=== PATIENT | female | born 1990 | race Caucasian/White ===

== ENCOUNTER 2017-12-17 18:30 | Observation (INO) | payer OTHER ==
[2017-12-17] MEDS ORDERED: Zofran 4 MG/2 ML VIAL IV ONE (19:24)
[2017-12-17] MEDS ORDERED: TYLENOL 325 MG PO STA (19:24)
[2017-12-17] MEDS ORDERED: TYLENOL 325 MG ONE (19:30)
[2017-12-17] MEDS ORDERED: Zofran 4 MG/2 ML VIAL ONE (19:30)
--- NOTE | 2017-12-17 19:34 | ERPHSYRPT ---
- History of Present Illness Time Seen by Provider: 12/17/17 19:05 Source: patient, family Exam Limitations: no limitations Patient Subjective Stated Complaint: PT MOTHER REPORTS PT EXPERIENCED TWO SEIZURES THIS EVENING, THE LAST ONE OCCURING APPROX 1800. MOTHER REPORTS PT HAS DECREASED COGNITIVE ABILITY. PT IS AOX3, ABLE TO ANSWER QUESTIONS. PT COMPLAINS OF CHEST PAIN, ABDOMINAL PAIN THAT IS STABBING. MOTHER REPORTS PT HAS WEAKNESS X4 DAYS. Triage Nursing Assessment: PT IS AOX3, ABLE TO ANSWER QUESTIONS, PT ABLE TO FOLLOW SIMPLE COMMANDS, PUPILS PERRL, RESP EASY AND NON LABORED, RADIAL PULSES STRONG AND EQUAL, ABD IS SOFT AND TENDER WITH PALPATION TO THE RIGHT UPPER QUAD AND THE EPIGASTRIC REGION. BOWEL SOUNDS ARE PRESENT AND NORMOACTIVEX4. Physician History: 27 y/o female with cognitive impairment brought in by ambulance for seizure activity X 2 that occurred just prior to arrival. According to the mother, patient had 2 witnessed tonic clonic seizures with post ictal states with the longest lasting 4 mins. In the ER, patient is awake and alert with no distress. Pt is having twitching movements of the upper extremities. Over the past 5 days , patient has been having numbness of bilateral lower extremities and having trouble staying on her feet. Today, patient also complains of chest and abdominal pain. Pt describes the pain as stabbing, constant, 10/10, and pt has not taken any pain meds. Timing/Duration: today Severity: severe Modifying Factors: Improves With: nothing Associated Symptoms: nausea, abdominal pain, chest pain, No shortness of breath Allergies/Adverse Reactions: No Known Drug Allergies Allergy (Verified 12/17/17 18:44) Home Medications: Lamotrigine 100 mg [lamICTAL 100MG TABLET] 200 mg PO BID 12/19/13 [History ] Loratadine 10 mg [Claritin 10 mg] 10 mg PO QAM 12/19/13 [History] Multivitamin [Daily Multivitamin] 1 each PO DAILY 12/19/13 [History] Omeprazole 20 MG [Prilosec 20 mg] 20 mg PO DAILY 12/19/13 [History] Ranitidine HCl [Zantac 75] 150 mg PO BID 12/19/13 [History] Clonidine HCl 0.1 mg [Catapres 0.1 MG] 0.3 mg PO HS 06/13/16 [History] Melatonin/Pyridoxine HCl (B6) [Melatonin 5 mg Tablet] 1 tab PO DAILY 06/13/16 [ History] Hx Tetanus, Diphtheria Vaccination/Date Given: Yes Hx Influenza Vaccination/Date Given: Yes Hx Pneumococcal Vaccination/Date Given: No Immunizations Up to Date: Yes - Review of Systems Constitutional: Weakness, No Fever, No Chills Eyes: No Symptoms Ears, Nose, & Throat: No Symptoms Respiratory: No Cough, No Dyspnea Cardiac: Chest Pain, No Edema, No Syncope Abdominal/Gastrointestinal: Abdominal Pain, Nausea, No Vomiting, No Diarrhea Genitourinary Symptoms: No Dysuria Musculoskeletal: No Back Pain, No Neck Pain Skin: No Rash Neurological: Dizziness, Focal Weakness, Gait Changes, Seizure, No Sensory Changes Psychological: No Symptoms Endocrine: No Symptoms All Other Systems: Reviewed and Negative - Past Medical History Pertinent Past Medical History: Yes Neurological History: Other ENT History: No Pertinent History Cardiac History: Hypertension Respiratory History: No Pertinent History Endocrine Medical History: Other Musculoskeletal History: No Pertinent History GI Medical History: GERD History: Other Psycho-Social History: Anxiety, Attention Deficit Disorder, Bipolar, Depression Female Reproductive Disorders: No Pertinent History Other Medical History: developmentally delayed. anger issues,Mother states "bipolar and pre diabetic" - Past Surgical History Past Surgical History: Yes Neuro Surgical History: No Pertinent History Cardiac: No Pertinent History Respiratory: No Pertinent History Gastrointestinal: Cholecystectomy Genitourinary: No Pertinent History Musculoskeletal: No Pertinent History Female Surgical History: No Pertinent History - Social History Smoking Status: Never smoker Exposure to second hand smoke: No Drug Use: none Patient Lives Alone: No - Female History Hx Last Menstrual Period: 11/17/18 Hx Now: No - Nursing Vital Signs Nursing Vital Signs: Initial Vital Signs Temperature 98.6 F 12/17/17 18:31 Pulse Rate 90 12/17/17 18:31 Respiratory Rate 20 12/17/17 18:31 Blood Pressure 139/50 12/17/17 18:31 O2 Sat by Pulse Oximetry 100 12/17/17 18:31 Pain Scale Pain Intensity 4 - Physical Exam General Appearance: no apparent distress, alert Eye Exam: PERRL/EOMI, eyes nml inspection Ears, Nose, Throat Exam: normal ENT inspection, TMs normal, pharynx normal, moist mucous membranes Neck Exam: normal inspection, non-tender, supple, full range of motion Respiratory Exam: normal breath sounds, lungs clear, No chest tenderness, No respiratory distress Cardiovascular Exam: regular rate/rhythm, normal heart sounds, normal peripheral pulses Gastrointestinal/Abdomen Exam: soft, normal bowel sounds, No tenderness, No mass Back Exam: normal inspection, normal range of motion, No CVA tenderness, No vertebral tenderness Extremity Exam: normal inspection, normal range of motion, pelvis stable Neurologic Exam: alert, oriented x 3, cooperative, airplane tester II-XII nml as tested, normal mood/affect, nml cerebellar function, nml station & gait, sensation nml, No motor deficits, No sensory deficit Skin Exam: normal color, warm, dry, No rash Lymphatic Exam: No adenopathy SpO2: 100 Oxygen Delivery: Room Air - Course Nursing assessment & vital signs reviewed: Yes EKG Interpreted by Me: RATE, NORMAL AXIS, NORMAL INTERVALS, NORMAL QRS Ordered Tests: Active Orders 24 hr Category Date Time Status EKG-ER Only STAT Care 12/17/17 19:21 Active IV Insertion STAT Care 12/17/17 19:21 Active NPO (ED) STAT Care 12/17/17 19:21 Active ABDOMEN AND PELVIS W/0 CONTRAS [CT] Stat Exams 12/17/17 19:22 Taken CHEST WITHOUT CONTRAST [CT] Stat Exams 12/17/17 19:22 Taken HEAD WITHOUT CONTRAST [CT] Stat Exams 12/17/17 19:21 Taken BLOOD CULTURE Stat Lab 12/17/17 19:35 Received CBC W DIFF Stat Lab 12/17/17 19:25 Completed CMP Stat Lab 12/17/17 19:25 Completed HCG QUALITATIVE,SERUM Stat Lab 12/17/17 19:25 Completed SED RATE [Erythrocyte Sedimentation Rate] Stat Lab 12/17/17 19:25 Completed TROPONIN Q3H Lab 12/17/17 19:25 Completed TROPONIN Q3H Lab 12/17/17 22:30 Ordered UA W/RFX UR CULTURE Stat Lab 12/17/17 21:00 Completed Urine Triage Profile Stat Lab 12/17/17 21:00 Completed Medication Summary Discontinued Medications Generic Name Dose Route Start Last Admin Trade Name Freq PRN Reason Stop Dose Admin Acetaminophen 650 mg 12/17/17 19:24 12/17/17 19:32 Tylenol 325 Mg PO 12/17/17 19:25 650 mg STAT STA Administration Acetaminophen Confirm 12/17/17 19:30 Tylenol 325 Mg Administered 12/17/17 19:31 Dose 650 mg .ROUTE .STK-MED ONE Ondansetron HCl 4 mg 12/17/17 19:24 12/17/17 19:32 Zofran 4 Mg/2 Ml Vial IV 12/17/17 19:25 4 mg STAT ONE Administration Ondansetron HCl Confirm 12/17/17 19:30 Zofran 4 Mg/2 Ml Vial Administered 12/17/17 19:31 Dose 4 mg .ROUTE .STK-MED ONE Lab/Rad Data: Laboratory Result Diagrams 12/17/17 19:25 12/17/17 19:25 Laboratory Results 12/17/17 12/17/17 12/17/17 Range/Units 21:00 21:00 19:25 WBC (4.0-10.5) K/mm3 RBC (4.1-5.4) M/mm3 Hgb (12.0-16.0) gm/dl Hct (35-47) % MCV (78-100) fl MCH (26-32) pg MCHC (32-36) g/dl RDW (11.5-14.0) % Plt Count (150-450) K/mm3 MPV (6-9.5) fl Gran % (36.0-66.0) % Lymphocytes % (24.0-44.0) % Monocytes % (0.0-12.0) % Eosinophils % (0.00-5.0) % Basophils % (0.0-0.4) % Basophils # (0-0.4) ESR (0-20) mm/hr Sodium (136-145) mEq/L Potassium (3.5-5.1) mEq/L Chloride (98-107) mEq/L Carbon Dioxide (21-32) mEq/L Anion Gap (5-15) MEQ/L BUN (9-20) mg/dL Creatinine (0.55-1.30) mg/dl Estimated GFR ML/MIN Glucose (70-110) MG/DL Calcium (8.5-10.1) mg/dL Total Bilirubin (0.2-1.0) mg/dL AST (15-37) U/L ALT (12-78) U/L Alkaline Phosphatase (46-116) U/L Troponin I < 0.017 (0.000-0.056) ng/ml Serum Total Protein (6.4-8.2) gm/dL Albumin (3.4-5.0) g/dL Serum , Qual (Negative) Ur Collection Type CCMS Urine Color YELLOW (YELLOW) Urine Appearance CLEAR (CLEAR) Urine pH 5.0 (5-6) Ur Specific [place] 1.010 (1.005-1.025) Urine Protein NEGATIVE (Negative) Urine Ketones MODERATE (NEGATIVE) Urine Blood NEGATIVE (0-5) Wayne/ul Urine Nitrite NEGATIVE (NEGATIVE) Urine Bilirubin NEGATIVE (NEGATIVE) Urine Urobilinogen NORMAL (0-1) mg/dL Ur Leukocyte Esterase NEGATIVE (NEGATIVE) Urine Culture Reflexed NO (NO) Urine Glucose NEGATIVE (NEGATIVE) mg/dL Urine Opiates Level NEG. (NEGATIVE) Ur Methadone NEG. (NEGATIVE) Urine Barbiturates NEG. (NEGATIVE) Ur Phencyclidine (PCP) NEG. (NEGATIVE) Urine Amphetamine NEG. (NEGATIVE) U Benzodiazepine Level NEG. (NEGATIVE) Urine Cocaine NEG. (NEGATIVE) Urine Marijuana (THC) NEG. (NEGATIVE) Specimen Received [id number]/[id number]/17 12/17/17 12/17/17 Range/Units 19:25 19:25 19:25 WBC (4.0-10.5) K/mm3 RBC (4.1-5.4) M/mm3 Hgb (12.0-16.0) gm/dl Hct (35-47) % MCV (78-100) fl MCH (26-32) pg MCHC (32-36) g/dl RDW (11.5-14.0) % Plt Count (150-450) K/mm3 MPV (6-9.5) fl Gran % (36.0-66.0) % Lymphocytes % (24.0-44.0) % Monocytes % (0.0-12.0) % Eosinophils % (0.00-5.0) % Basophils % (0.0-0.4) % Basophils # (0-0.4) ESR 16 (0-20) mm/hr Sodium 139 (136-145) mEq/L Potassium 4.1 (3.5-5.1) mEq/L Chloride 102 (98-107) mEq/L Carbon Dioxide 28.2 (21-32) mEq/L Anion Gap 12.8 (5-15) MEQ/L BUN 13 (9-20) mg/dL Creatinine 0.84 (0.55-1.30) mg/dl Estimated GFR > 60 ML/MIN Glucose 92 (70-110) MG/DL Calcium 9.3 (8.5-10.1) mg/dL Total Bilirubin 0.40 (0.2-1.0) mg/dL AST 22 (15-37) U/L ALT 23 (12-78) U/L Alkaline Phosphatase 88 (46-116) U/L Troponin I (0.000-0.056) ng/ml Serum Total Protein 8.2 (6.4-8.2) gm/dL Albumin 4.4 (3.4-5.0) g/dL Serum , Qual NEGATIVE (Negative) Ur Collection Type Urine Color (YELLOW) Urine Appearance (CLEAR) Urine pH (5-6) Ur Specific [place] (1.005-1.025) Urine Protein (Negative) Urine Ketones (NEGATIVE) Urine Blood (0-5) Wayne/ul Urine Nitrite (NEGATIVE) Urine Bilirubin (NEGATIVE) Urine Urobilinogen (0-1) mg/dL Ur Leukocyte Esterase (NEGATIVE) Urine Culture Reflexed (NO) Urine Glucose (NEGATIVE) mg/dL Urine Opiates Level (NEGATIVE) Ur Methadone (NEGATIVE) Urine Barbiturates (NEGATIVE) Ur Phencyclidine (PCP) (NEGATIVE) Urine Amphetamine (NEGATIVE) U Benzodiazepine Level (NEGATIVE) Urine Cocaine (NEGATIVE) Urine Marijuana (THC) (NEGATIVE) Specimen Received 12/17/17 Range/Units 19:25 WBC 7.1 (4.0-10.5) K/mm3 RBC 4.17 (4.1-5.4) M/mm3 Hgb 13.1 (12.0-16.0) gm/dl Hct 40.5 (35-47) % MCV 97.1 (78-100) fl MCH 31.4 (26-32) pg MCHC 32.3 (32-36) g/dl RDW 11.6 (11.5-14.0) % Plt Count 262 (150-450) K/mm3 MPV 8.9 (6-9.5) fl Gran % 63.6 (36.0-66.0) % Lymphocytes % 23.6 L (24.0-44.0) % Monocytes % 10.0 (0.0-12.0) % Eosinophils % 2.5 (0.00-5.0) % Basophils % 0.3 (0.0-0.4) % Basophils # 0.02 (0-0.4) ESR (0-20) mm/hr Sodium (136-145) mEq/L Potassium (3.5-5.1) mEq/L Chloride (98-107) mEq/L Carbon Dioxide (21-32) mEq/L Anion Gap (5-15) MEQ/L BUN (9-20) mg/dL Creatinine (0.55-1.30) mg/dl Estimated GFR ML/MIN Glucose (70-110) MG/DL Calcium (8.5-10.1) mg/dL Total Bilirubin (0.2-1.0) mg/dL AST (15-37) U/L ALT (12-78) U/L Alkaline Phosphatase (46-116) U/L Troponin I (0.000-0.056) ng/ml Serum Total Protein (6.4-8.2) gm/dL Albumin (3.4-5.0) g/dL Serum , Qual (Negative) Ur Collection Type Urine Color (YELLOW) Urine Appearance (CLEAR) Urine pH (5-6) Ur Specific [place] (1.005-1.025) Urine Protein (Negative) Urine Ketones (NEGATIVE) Urine Blood (0-5) Wayne/ul Urine Nitrite (NEGATIVE) Urine Bilirubin (NEGATIVE) Urine Urobilinogen (0-1) mg/dL Ur Leukocyte Esterase (NEGATIVE) Urine Culture Reflexed (NO) Urine Glucose (NEGATIVE) mg/dL Urine Opiates Level (NEGATIVE) Ur Methadone (NEGATIVE) Urine Barbiturates (NEGATIVE) Ur Phencyclidine (PCP) (NEGATIVE) Urine Amphetamine (NEGATIVE) U Benzodiazepine Level (NEGATIVE) Urine Cocaine (NEGATIVE) Urine Marijuana (THC) (NEGATIVE) Specimen Received - Progress Progress: improved Progress Note: 12/17/17 22:[address] scan head, CT chest and abdomen are all within normal limits. The labs and UA as well as urine tox screen are all within normal limits. In the ER, patient has been having twitching movements and becomes tachycardic in the 120' s. No tonic clonic seizures in the ER. The patient has been accepted by neurologist, Dr Tran at [facility] for seizure activity. Since there is a several hour wait, the patient will be admitted as an OBS under the care of Dr Patricio. - Departure Time of Disposition: 22:06 Departure Disposition: Observation Clinical Impression: Seizure Condition: Fair Critical Care Time: Yes Critical Care Time(excluding separately billable procedures): 75-104 minutes Referrals: HUNTER PATRICIO MD [Primary Care Provider] -
[2017-12-17 19:43] LABS: BASOPHIL % 0.3 % (0.0-0.4); Basophil (Absolute #) 0.02 (0-0.4); Eosinophil % 2.5 % (0.00-5.0); Eosinophil (Absolute #) 0.18 (0-0.5); Granulocyte Absolute (ANC) 4.52 (1.4-6.9); Granulocytes % 63.6 % (36.0-66.0); Hematocrit 40.5 % (35-47); Hemoglobin 13.1 gm/dl (12.0-16.0); Lymphocyte (Absolute #) 1.68 (1.0-4.6); Lymphocytes % 23.6 % (24.0-44.0); Mean Cell Volume 97.1 fl (78-100); Mean Corpuscular Hemoglobin 31.4 pg (26-32); Mean Corpuscular Hgb Concent. 32.3 g/dl (32-36); Mean Platelet Volume 8.9 fl (6-9.5); Monocyte (Absolute #) 0.71 (0.0-1.3); Platelet Count 262 K/mm3 (150-450); Red Blood Count 4.17 M/mm3 (4.1-5.4); Red Cell Distribution Width 11.6 % (11.5-14.0); White Blood Count 7.1 K/mm3 (4.0-10.5)
[2017-12-17 20:15] LABS: ALBUMIN 4.4 g/dL (3.4-5.0); ALKALINE PHOSPHATASE 88 U/L (46-116); ANION GAP 12.8 MEQ/L (5-15); BLOOD UREA NITROGEN 13 mg/dL (9-20); CHLORIDE 102 mEq/L (98-107); Calcium 9.3 mg/dL (8.5-10.1); Carbon Dioxide 28.2 mEq/L (21-32); Creatinine 1 0.84 mg/dl (0.55-1.30); EST GLOMERULAR FILTRATION RATE > 60 ML/MIN; Glucose 92 MG/DL (70-110); Potassium 4.1 mEq/L (3.5-5.1); SGOT/AST 22 U/L (15-37); SGPT/ALT 23 U/L (12-78); SODIUM 139 mEq/L (136-145); Total Protein 8.2 gm/dL (6.4-8.2)
[2017-12-17 21:14] LABS: Appearance CLEAR (CLEAR); Bilirubin NEGATIVE (NEGATIVE); Blood NEGATIVE Ery/ul (0-5); Glucose NEGATIVE (NEGATIVE); Ketones MODERATE (NEGATIVE); Leukocyte Esterase NEGATIVE (NEGATIVE); Nitrite NEGATIVE (NEGATIVE); Protein,Urine Dip NEGATIVE (Negative); Urobilinogen NORMAL mg/dL (0-1)
[2017-12-17 21:19] LABS: Amphetamine,Urine NEG. (NEGATIVE); Barbiturate,Urine NEG. (NEGATIVE); Benzodiazepine,Urine NEG. (NEGATIVE); Cocaine,Urine NEG. (NEGATIVE); Methadone,Urine NEG. (NEGATIVE); Opiate,Urine NEG. (NEGATIVE); PCP,Urine NEG. (NEGATIVE); THC,Urine NEG. (NEGATIVE)
[2017-12-17] MEDS ORDERED: lamICTAL 100MG TABLET PO SCH (22:00)
[2017-12-18] MEDS ORDERED: DESYREL 50 MG PO ONE (00:10)
[2017-12-18] MEDS ORDERED: Pepcid 20 MG PO ONE (00:18)
[2017-12-18] MEDS: TYLENOL 325 MG PO PRN ×2 (00:20→21:01)
[2017-12-18] MEDS ORDERED: Ativan 2 MG/1 ML VIAL IV ONE (01:01)
[2017-12-18] MEDS ORDERED: Ativan 2 MG/1 ML VIAL IV PRN (02:11)
[2017-12-18] MEDS: Zofran 4 MG/2 ML VIAL IV PRN ×3 (02:38→21:01)
[2017-12-18 05:31] LABS: BASOPHIL % 0.3 % (0.0-0.4); Basophil (Absolute #) 0.02 (0-0.4); Eosinophil % 3.7 % (0.00-5.0); Eosinophil (Absolute #) 0.22 (0-0.5); Granulocyte Absolute (ANC) 3.05 (1.4-6.9); Granulocytes % 50.9 % (36.0-66.0); Hematocrit 37.1 % (35-47); Hemoglobin 11.9 gm/dl (12.0-16.0); Lymphocytes % 33.3 % (24.0-44.0); Mean Cell Volume 97.1 fl (78-100); Mean Corpuscular Hgb Concent. 32.1 g/dl (32-36); Mean Platelet Volume 8.9 fl (6-9.5); Monocyte (Absolute #) 0.71 (0.0-1.3); Monocytes % 11.8 % (0.0-12.0); Platelet Count 225 K/mm3 (150-450); Red Blood Count 3.82 M/mm3 (4.1-5.4); Red Cell Distribution Width 11.6 % (11.5-14.0)
[2017-12-18 05:34] LABS: Mean Corpuscular Hemoglobin 31.1 pg (26-32)
[2017-12-18 06:09] LABS: ANION GAP 10.3 MEQ/L (5-15); BLOOD UREA NITROGEN 11 mg/dL (9-20); CHLORIDE 103 mEq/L (98-107); Calcium 8.7 mg/dL (8.5-10.1); Carbon Dioxide 29.4 mEq/L (21-32); Creatinine 1 0.85 mg/dl (0.55-1.30); EST GLOMERULAR FILTRATION RATE > 60 ML/MIN; Glucose 95 MG/DL (70-110); Potassium 3.8 mEq/L (3.5-5.1); SODIUM 139 mEq/L (136-145)
--- NOTE | 2017-12-18 08:40 | XRAY ---
Indication: Seizure. Multiple contiguous axial images obtained through the head without contrast. Comparison: None Normal appearing brain parenchyma, ventricles, and bony calvarium. Visualized paranasal sinuses and mastoid air cells clear. Impression: Normal CT head without contrast exam. Comment: Preliminary interpretation was made by [facility]. No discrepancy. CT DI 68.65
--- NOTE | 2017-12-18 08:42 | XRAY ---
Indication: Chest and abdomen pain. Weakness and extremity numbness. Seizure. Multiple contiguous axial images obtained through the chest without contrast as ordered. Comparison: None Lungs are inflated and clear. Heart is not enlarged. Aorta is normal in course and caliber. No pathologic mediastinal lymphadenopathy. Bony thorax intact. CT abdomen report is reported separately. Impression: Normal CT chest without contrast exam. Comment: Preliminary interpretation was made by [facility]. No discrepancy. CT DI 17.76
--- NOTE | 2017-12-18 08:44 | XRAY ---
Indication: Chest and abdomen pain. Weakness and extremity numbness. Seizure. Multiple contiguous images obtained through the abdomen and pelvis without contrast as ordered. Comparison: May 14, 2015. CT chest reported separately. Noncontrasted stomach and bowel loops appear nonobstructed. Normal appendix. Again previous cholecystectomy. No free fluid/air. Remaining liver, pancreas, spleen, adrenal glands, kidneys, ureters, bladder, uterus, and aorta appear unremarkable for noncontrast exam. Osseous structures intact. Impression: Negative CT abdomen/pelvis without contrast exam. Comment: Preliminary interpretation was made by [facility]. No discrepancy. CT DI 22.12
[2017-12-18] MEDS ORDERED: NON-FORMULARY ITEM (Ranitidine Hcl [Zantac 75] 150 MG) PO SCH (10:00)
[2017-12-18] MEDS: Pepcid 20 MG PO SCH ×2 (10:21→23:06)
[2017-12-18] MEDS: CLARITIN 10 MG PO SCH (10:21)
[2017-12-18] MEDS: lamICTAL 100MG TABLET PO SCH ×2 (10:21→23:04)
[2017-12-18] MEDS ORDERED: DESYREL 50 MG PO SCH (22:00)
[2017-12-18] MEDS ORDERED: NON-FORMULARY ITEM (Trazodone Hcl [Trazodone Hcl] 100 MG) PO SCH (22:00)
[2017-12-19] MEDS: TYLENOL 325 MG PO PRN (01:34)
[2017-12-19] MEDS ORDERED: Ativan 1 MG PO PRN (02:05)
[2017-12-19] MEDS ORDERED: Sodium Chloride 0.9% 10 ML FLUSH Syringe IV SCH (06:00)
[2017-12-19] MEDS: lamICTAL 100MG TABLET PO SCH (08:25)
[2017-12-19] MEDS: CLARITIN 10 MG PO SCH (08:25)
[2017-12-19] MEDS: Pepcid 20 MG PO SCH (08:25)
[2017-12-19 08:34] VITALS: O2SAT 97
[2017-12-19] MEDS: Zofran 4 MG/2 ML VIAL IV PRN (11:18)
[2017-12-19 11:38] VITALS: BP 101/53; PULSE 85
--- NOTE | 2017-12-19 14:24 | PCM.SSS ---
History of Present Illness - Chief Complaint Chief Complaint: Seizure History of Present Illness: is a 27 year old female. - Review of Systems Constitutional: No Fever, No Chills Eyes: No Symptoms Ears, Nose, & Throat: No Symptoms Respiratory: No Cough, No Short Of Breath Cardiac: No Chest Pain, No Edema, No Syncope Abdominal/Gastrointestinal: No Abdominal Pain, No Nausea, No Vomiting, No Diarrhea Genitourinary Symptoms: No Dysuria Musculoskeletal: No Back Pain, No Neck Pain Skin: No Rash Neurological: Parasthesia, Seizure, No Dizziness, No Focal Weakness, No Sensory Changes Psychological: No Symptoms Endocrine: No Symptoms Hematologic/Lymphatic: No Symptoms Immunological/Allergic: No Symptoms Medications & Allergies Home Medications: Home Medication List Lamotrigine 100 mg [lamICTAL 100MG TABLET] 200 mg PO BID 12/19/13 [ History Confirmed 12/17/17] Loratadine 10 mg [Claritin 10 mg] 10 mg PO QAM 12/19/13 [History Confirmed 12/17/17] Ranitidine HCl [Zantac 75] 150 mg PO BID 12/19/13 [History Confirmed 12/17/17] Trazodone HCl 100 mg PO HS 12/17/17 [History Confirmed 12/17/17] Allergies/Adverse Reactions: Allergies Allergy/AdvReac Type Severity Reaction Status Date / Time No Known Drug Allergies Allergy Verified 12/17/17 18:44 - Past Medical History Past Medical History: Yes Neurological History: Other ENT History: No Pertinent History Cardiac History: Hypertension Respiratory History: No Pertinent History Endocrine Medical History: Other Musculoskelatal History: No Pertinent History GI Medical History: GERD History: Other Pyscho-Social History: Anxiety, Attention Deficit Disorder, Bipolar, Depression Reproductive Disorders: No Pertinent History Comment: developmentally delayed. anger issues,Mother states "bipolar and pre diabetic" - Female History Hx Last Menstrual Period: 11/17/18 Are you now?: No - Past Surgical History Past Surgical History: Yes Neuro Surgical History: No Pertinent History Cardiac History: No Pertinent History Respiratory Surgery: No Pertinent History GI Surgical History: Cholecystectomy Genitourinary Surgical Hx: No Pertinent History Musculskeletal Surgical Hx: No Pertinent History Female Surgical History: No Pertinent History - Social History Smoking Status: Never smoker Exposure to second hand smoke: No Alcohol: None Drug Use: none - Physical Exam Vital Signs: Vital Signs - 24 hr Temp Pulse Resp BP Pulse Ox 12/19/17 11:37 98.8 F 85 20 101/53 97 12/19/17 08:00 97.5 F 56 L 20 113/53 97 12/19/17 04:05 98.6 F 91 H 16 94/57 98 12/19/17 00:25 98.6 F 75 20 105/51 97 12/18/17 14:59 97.8 F 80 20 107/68 97 General Appearance: no apparent distress, alert Neurologic Exam: alert, oriented x 3, cooperative, normal mood/affect, nml cerebellar function, nml station & gait, sensation nml, No motor deficits Eye Exam: PERRL/EOMI, eyes nml inspection Ears, Nose, Throat Exam: normal ENT inspection, TMs normal, pharynx normal, moist mucous membranes Neck Exam: normal inspection, non-tender, supple, full range of motion Respiratory Exam: normal breath sounds, lungs clear, No respiratory distress Cardiovascular Exam: regular rate/rhythm, normal heart sounds, normal peripheral pulses Gastrointestinal/Abdomen Exam: soft, normal bowel sounds, No tenderness, No mass Back Exam: normal inspection, normal range of motion, No CVA tenderness, No vertebral tenderness Extremity Exam: normal inspection, normal range of motion, pelvis stable Skin Exam: normal color, warm, dry, No rash Lymphatic Exam: No adenopathy Assessment/Plan (1) Seizure Current Visit: Yes Status: Acute Code(s): R56.9 - UNSPECIFIED CONVULSIONS (2) Dizziness Current Visit: No Status: Acute Code(s): R42 - DIZZINESS AND GIDDINESS Hospital Summary - Hospital Course Hospital Course: Chief Complaint Diagnosis Seizure Allergies Allergy/AdvReac Type Severity Reaction Status Date / Time No Known Drug Allergies Allergy Verified 12/17/17 18:44 Vital Signs (Last 24 hours) Temp Pulse Resp BP Pulse Ox 12/19/17 11:37 98.8 F 85 20 101/53 97 12/19/17 08:00 97.5 F 56 L 20 113/53 97 12/19/17 04:05 98.6 F 91 H 16 94/57 98 12/19/17 00:25 98.6 F 75 20 105/51 97 12/18/17 14:59 97.8 F 80 20 107/68 97 Home Medications Medication Instructions Recorded Confirmed Last Taken Type Trazodone HCl 100 mg PO HS 12/17/17 12/17/17 12/16/17 History Current Medications Generic Name Dose Route Start Last Admin Trade Name Siva PRN Reason Stop Dose Admin Acetaminophen 650 mg 12/17/17 23:51 12/19/17 01:34 Tylenol 325 Mg PO 01/16/18 23:50 650 mg Q4H PRN PRN Administration PAIN AND/OR FEVER Famotidine 20 mg 12/18/17 10:00 12/19/17 08:25 Pepcid 20 Mg PO 01/17/18 09:59 20 mg BID HOLDEN Administration Lamotrigine 200 mg 12/18/17 10:00 12/19/17 08:25 Lamictal 100mg Tablet PO 01/17/18 09:59 200 mg BID HOLDEN Administration Loratadine 10 mg 12/18/17 10:00 12/19/17 08:25 Claritin 10 Mg PO 01/17/18 09:59 10 mg QAM HOLDEN Administration Lorazepam 2 mg 12/18/17 02:11 Ativan 2 Mg/1 Ml Vial IV 01/17/18 02:09 ONCE PRN Siezure Lorazepam 1 mg 12/19/17 02:05 Ativan 1 Mg PO 01/18/18 02:04 Q4H PRN PRN ANXIETY Ondansetron HCl 4 mg 12/17/17 22:07 12/19/17 11:18 Zofran 4 Mg/2 Ml Vial IV 01/16/18 22:06 4 mg Q6H PRN PRN Administration NAUSEA/VOMITING Sodium Chloride 10 ml 12/19/17 06:00 12/19/17 08:25 Sodium Chloride 0.9% 10 Ml Flush Syringe IV 01/18/18 05:59 10 ml Q8HT HOLDEN Administration Trazodone HCl 100 mg 12/18/17 22:00 12/18/17 23:03 Desyrel 50 Mg PO 01/17/18 21:59 100 mg HS HOLDEN Administration Discontinued Medications Generic Name Dose Route Start Last Admin Trade Name Siva PRN Reason Stop Dose Admin Acetaminophen 650 mg 12/17/17 19:24 12/17/17 19:32 Tylenol 325 Mg PO 12/17/17 19:25 650 mg STAT STA Administration Acetaminophen Confirm 12/17/17 19:30 Tylenol 325 Mg Administered 12/17/17 19:31 Dose 650 mg .ROUTE .STK-MED ONE Famotidine 20 mg 12/18/17 00:18 12/18/17 00:20 Pepcid 20 Mg PO 12/18/17 00:19 20 mg ONCE ONE Administration Lamotrigine 100 mg 12/17/17 22:00 12/18/17 00:20 Lamictal 100mg Tablet PO 01/16/18 21:59 100 mg BID HOLDEN Administration Lorazepam 2 mg 12/18/17 01:01 Ativan 2 Mg/1 Ml Vial IV 12/18/17 01:02 ONCE ONE Ondansetron HCl 4 mg 12/17/17 19:24 12/17/17 19:32 Zofran 4 Mg/2 Ml Vial IV 12/17/17 19:25 4 mg STAT ONE Administration Ondansetron HCl Confirm 12/17/17 19:30 Zofran 4 Mg/2 Ml Vial Administered 12/17/17 19:31 Dose 4 mg .ROUTE .STK-MED ONE Trazodone HCl 100 mg 12/18/17 00:10 12/18/17 00:20 Desyrel 50 Mg PO 12/18/17 00:11 100 mg ONCE ONE Administration Intake & Output (Last 24 hours) 12/17/17 12/18/17 12/19/17 12/20/17 11:59 11:59 11:59 11:59 Intake Total 600 2800 480 Output Total 300 2025 Balance 300 775 480 Weight 85.4 kg Microbiology Results (Last 24 hours) 12/17/17 19:25 Blood - Pending 12/17/17 19:25 Blood Blood Culture - Preliminary NO GROWTH TO DATE Orders (Last 24 hours) Category Date Time Status Miscellaneous Nursing Order ROUTINE Care 12/18/17 15:55 Active Neuro Checks Q4H Care 12/19/17 04:00 Active cath [Cath for Residual-In & Out] ROUTINE Care 12/19/17 02:07 Active Discharge Routine Discharge 12/19/17 13:54 Ordered Discharge/Telephone Order Routine Discharge 12/19/17 Active Lorazepam 1 mg [Ativan 1 MG] Med 12/19/17 02:05 Active 1 mg PO Q4H PRN PRN NaCl 0.9% 10 ML FLUSH [Sodium Chloride 0.9% 10 ML FLUSH Med 12/19/17 06:00 Active Syringe] 10 ml IV Q8HT Trazodone HCl 50 mg [Desyrel 50 mg] Med 12/18/17 22:00 Active 100 mg PO HS Patient Care Notes (Last 24 hours) 12/19/17 11:30 (created 12/19/17 11:38) Nursing Note by Mila Cruz Pt c/o chest and abd "gregoria. C/o sl nausea; med given for same. Initialized on 12/19/17 11:38 - END OF NOTE 12/19/17 09:30 (created 12/19/17 10:09) Nursing Note by Mila Cruz [facility] transfer center called for pt update and V/S. Initialized on 12/19/17 10:09 - END OF NOTE 12/19/17 02:45 Nursing Note by Jhonny Boogie Pt was able to void 200 ml. Will not straight cath at this time. Initialized on 12/19/17 02:45 - END OF NOTE 12/19/17 02:02 Nursing Note by Jhonny Boogie Reported increased numbness and urinary retention to Dr Patricio. Ordered ativan 1 mg po q4h prn, may do straight cath for urinary retention. Neurochecks every 4 hours. Initialized on 12/19/17 02:02 - END OF NOTE 12/19/17 01:44 Nursing Note by Jhonny Boogie Pt c/o increasing numbness to legs and arms. States she is numb from the neck down and cannot move. When asked to move her toes, she was able to move them. Asked pt to close her eyes hand tell me which leg I was touching, she only responded when I touched the left leg. Pt did not respond to painful stimuli ( nail bed pressure) to left leg or left hand. Pt also c/o difficulty urinating. Called transfer center to check on bed availability, still no beds available. Updated them on patient changes. Spoke with Geovanna at the transfer center. Initialized on 12/19/17 01:44 - END OF NOTE 12/18/17 18:10 Nursing Note by Shari Perry pt call light on to go to the bathroom. mother in room stated "you better get help, she can't walk" had second nurse help ambulate pt to BR. pt knees buckled a couple of times while walking to the bathroom then collapsed to the bed when returned to bed. informed patient that it was not safe to ambulate her to the bathroom and that she would need to use the bedpan or the bedside commode. mother in agreement for patient safety. Initialized on 12/18/17 18:10 - END OF NOTE 12/18/17 18:09 Nursing Note by Shari Perry called [facility] regarding bed availability. stated do not have a bed yet. will call when bed is available. Initialized on 12/18/17 18:09 - END OF NOTE Patient is transferred to [facility] under care of Dr Abreu. - Vitals & Intake/Output Vital Signs: Vital Signs Temperature 98.8 F 12/19/17 11:37 Pulse Rate 85 12/19/17 11:37 Respiratory Rate 20 12/19/17 11:37 Blood Pressure 101/53 12/19/17 11:37 O2 Sat by Pulse Oximetry 97 12/19/17 11:37 Intake & Output: Intake & Output 12/17/17 12/18/17 12/19/17 12/20/17 11:59 11:59 11:59 11:59 Intake Total 600 2800 480 Output Total 300 2025 Balance 300 775 480 Weight 85.4 kg - Lab Result Diagrams: 12/18/17 05:20 12/18/17 05:20 - Discharge Discharge Date: 12/19/17 Disposition: XFER OTHER Condition: Stable Prescriptions: No Action Lamotrigine 100 mg [lamICTAL 100MG TABLET] 200 mg PO BID Loratadine 10 mg [Claritin 10 mg] 10 mg PO QAM Ranitidine HCl [Zantac 75] 150 mg PO BID Trazodone HCl 100 mg PO HS Follow up with: HUNTER PATRICIO MD [Primary Care Provider] - Call for Appointment
== END 2017-12-19 15:15 ==
LOC: ED 18:30 → MED SURG 22:28
PROVIDERS: ADMIT General Practice; ATTEND General Practice
DX: R56.9 Unspecified convulsions (principal); R42 Dizziness and giddiness; R10.9 Unspecified abdominal pain; Z79.899 Other long term (current) drug therapy
CPT/HCPCS: 36415; 70450; 71250; 74176; 80048; 80053; 80307; 81002; 84484; 84703; 85025; 85652; 87040; 93005; 93268; 99285; G0378; J2405; A9270-GY

== ENCOUNTER 2018-01-07 17:45 | Emergency (ER) | payer OTHER ==
[2018-01-07] MEDS ORDERED: VALIUM 10 MG/2 ML SYRINGE IV ONE (17:53)
[2018-01-07] MEDS ORDERED: Sodium Chloride 0.9% 1000 ML 1,000 ML IV STA (17:53)
--- NOTE | 2018-01-07 17:53 | ERPHSYRPT ---
- History of Present Illness Time Seen by Provider: 01/07/18 17:49 Source: family, EMS Exam Limitations: no limitations Physician History: The patient is a 28-year-old female with mother arrives by ambulance from home with the mother states she had one brief seizure followed by another seizure lasting 7 minutes. The patient remembers being dizzy. She does not remember the seizure. The mother states that her daughter has been having a few seizures in the recent weeks. She denies any recent illnesses or head trauma. She has been on lamictal for several years for psychiatric illness. She has been seen by a neurologist in [place] for the seizures. Her past medical history is significant for recent seizure activity and psychiatric illness. Timing/Duration: today Severity: moderate Character of Deficits: general (difuse) Deficits: no difficulties Baseline/Normal Cognition: alert oriented x 3 Current Cognition: alert oriented x 3 Baseline Gait: walks w/o assistance Associated Symptoms: seizures Allergies/Adverse Reactions: No Known Drug Allergies Allergy (Verified 01/07/18 17:53) Home Medications: Lamotrigine 100 mg [lamICTAL 100MG TABLET] 200 mg PO BID 12/19/13 [History ] Trazodone HCl 100 mg PO HS 12/17/17 [History] Naproxen [Naproxen] 375 mg PO BID 01/07/18 [History] Hx Tetanus, Diphtheria Vaccination/Date Given: Yes Hx Influenza Vaccination/Date Given: Yes Hx Pneumococcal Vaccination/Date Given: No - Review of Systems Constitutional: No Fever, No Chills Eyes: No Symptoms Ears, Nose, & Throat: No Symptoms Respiratory: No Cough, No Dyspnea Cardiac: No Chest Pain, No Edema, No Syncope Abdominal/Gastrointestinal: No Abdominal Pain, No Nausea, No Vomiting, No Diarrhea Genitourinary Symptoms: No Dysuria Musculoskeletal: No Back Pain, No Neck Pain Skin: No Rash Neurological: Seizure Psychological: No Symptoms Endocrine: No Symptoms Hematologic/Lymphatic: No Symptoms Immunological/Allergic: No Symptoms All Other Systems: Reviewed and Negative - Past Medical History Pertinent Past Medical History: Yes Neurological History: Other ENT History: No Pertinent History Cardiac History: Hypertension Respiratory History: No Pertinent History Endocrine Medical History: Other Musculoskeletal History: No Pertinent History GI Medical History: GERD History: Other Psycho-Social History: Anxiety, Attention Deficit Disorder, Bipolar, Depression Female Reproductive Disorders: No Pertinent History Other Medical History: developmentally delayed. anger issues,Mother states "bipolar and pre diabetic" - Past Surgical History Past Surgical History: Yes Neuro Surgical History: No Pertinent History Cardiac: No Pertinent History Respiratory: No Pertinent History Gastrointestinal: Cholecystectomy Genitourinary: No Pertinent History Musculoskeletal: No Pertinent History Female Surgical History: No Pertinent History - Social History Smoking Status: Never smoker Exposure to second hand smoke: No Drug Use: none Patient Lives Alone: No - Nursing Vital Signs Nursing Vital Signs: Initial Vital Signs Temperature 98.8 F 01/07/18 17:46 Pulse Rate 97 H 01/07/18 17:46 Respiratory Rate 16 01/07/18 17:46 Blood Pressure 121/74 01/07/18 17:46 O2 Sat by Pulse Oximetry 98 01/07/18 17:46 Pain Scale Pain Intensity 0 - Serafin Coma Scale Best Eye Response ([place]): (4) open spontaneously Best Verbal Response ([place]): (5) oriented Best Motor Response ([place]): (6) obeys commands Serafin Total: 15 - Physical Exam General Appearance: no apparent distress, alert Eye Exam: bilateral eye: normal inspection Ears, Nose, Throat Exam: normal ENT inspection, moist mucous membranes Neck Exam: normal inspection, non-tender, supple Respiratory: normal breath sounds, lungs clear, airway intact, No respiratory distress Cardiovascular: regular rate/rhythm, murmur, No edema Gastrointestinal: soft, No tenderness, No distention Pelvic Exam: not done Rectal Exam: not done Back Exam: normal inspection Extremity Exam: normal inspection, No pedal edema Mental Status: alert, oriented x 3 medical professionals Exam: tongue midline Coordination/Gait: normal finger to nose, normal gait Motor/Sensory: no motor deficit Skin Exam: normal color, warm, dry, No rash SpO2 Interpretation: normal Ordered Tests: Active Orders 24 hr Category Date Time Status IV Insertion STAT Care 01/07/18 17:53 Active Pulse Oximetry (ED) STAT Care 01/07/18 17:53 Active CBC W DIFF Stat Lab 01/07/18 18:18 Completed CMP Stat Lab 01/07/18 18:18 Completed UA W/RFX UR CULTURE Stat Lab 01/07/18 18:30 Completed Urine Triage Profile Stat Lab 01/07/18 18:30 Completed Medication Summary Discontinued Medications Generic Name Dose Route Start Last Admin Trade Name Freq PRN Reason Stop Dose Admin Diazepam 10 mg 01/07/18 17:53 02/14/18 18:13 Valium 10 Mg/2 Ml Syringe IV 01/07/18 17:54 Not Given STAT ONE Sodium Chloride 1,000 mls @ 999 mls/hr 01/07/18 17:53 01/07/18 18:06 Sodium Chloride 0.9% 1000 Ml IV 01/07/18 18:53 999 mls/hr .Q1H1M STA Administration Sodium Chloride Confirm 01/07/18 18:01 Sodium Chloride 0.9% 1000 Ml Administered 01/07/18 18:02 Dose 1,000 mls @ ud .ROUTE .STK-MED ONE Lorazepam 2 mg 01/07/18 18:03 01/07/18 18:07 Ativan 2 Mg/1 Ml Vial IV 01/07/18 18:04 2 mg STAT ONE Administration Lorazepam Confirm 01/07/18 18:07 Ativan 2 Mg/1 Ml Vial Administered 01/07/18 18:08 Dose 2 mg .ROUTE .STK-MED ONE Lab/Rad Data: Laboratory Result Diagrams 01/07/18 18:18 01/07/18 18:18 Laboratory Results 01/07/18 01/07/18 01/07/18 Range/Units 18:30 18:30 18:18 WBC (4.0-10.5) K/mm3 RBC (4.1-5.4) M/mm3 Hgb (12.0-16.0) gm/dl Hct (35-47) % MCV (78-100) fl MCH (26-32) pg MCHC (32-36) g/dl RDW (11.5-14.0) % Plt Count (150-450) K/mm3 MPV (6-9.5) fl Gran % (36.0-66.0) % Lymphocytes % (24.0-44.0) % Monocytes % (0.0-12.0) % Eosinophils % (0.00-5.0) % Basophils % (0.0-0.4) % Basophils # (0-0.4) Sodium 142 (136-145) mEq/L Potassium 3.7 (3.5-5.1) mEq/L Chloride 106 (98-107) mEq/L Carbon Dioxide 29.5 (21-32) mEq/L Anion Gap 10.6 (5-15) MEQ/L BUN 15 (9-20) mg/dL Creatinine 0.88 (0.55-1.30) mg/dl Estimated GFR > 60 ML/MIN Glucose 90 (70-110) MG/DL Calcium 8.6 (8.5-10.1) mg/dL Total Bilirubin 0.20 (0.2-1.0) mg/dL AST 14 L (15-37) U/L ALT 18 (12-78) U/L Alkaline Phosphatase 67 (46-116) U/L Serum Total Protein 6.8 (6.4-8.2) gm/dL Albumin 3.8 (3.4-5.0) g/dL Ur Collection Type VOID Urine Color YELLOW (YELLOW) Urine Appearance CLEAR (CLEAR) Urine pH 6.0 (5-6) Ur Specific [place] 1.015 (1.005-1.025) Urine Protein NEGATIVE (Negative) Urine Ketones NEGATIVE (NEGATIVE) Urine Blood NEGATIVE (0-5) Wayne/ul Urine Nitrite NEGATIVE (NEGATIVE) Urine Bilirubin NEGATIVE (NEGATIVE) Urine Urobilinogen NORMAL (0-1) mg/dL Ur Leukocyte Esterase NEGATIVE (NEGATIVE) Urine Culture Reflexed NO (NO) Urine Glucose NEGATIVE (NEGATIVE) mg/dL Urine Opiates Level NEG. (NEGATIVE) Ur Methadone NEG. (NEGATIVE) Urine Barbiturates NEG. (NEGATIVE) Ur Phencyclidine (PCP) NEG. (NEGATIVE) Urine Amphetamine NEG. (NEGATIVE) U Benzodiazepine Level NEG. (NEGATIVE) Urine Cocaine NEG. (NEGATIVE) Urine Marijuana (THC) NEG. (NEGATIVE) Specimen Received 01/07/18 1830 01/07/18 Range/Units 18:18 WBC 5.1 (4.0-10.5) K/mm3 RBC 3.74 L (4.1-5.4) M/mm3 Hgb 11.7 L (12.0-16.0) gm/dl Hct 36.6 (35-47) % MCV 97.9 (78-100) fl MCH 31.2 (26-32) pg MCHC 32.0 (32-36) g/dl RDW 11.7 (11.5-14.0) % Plt Count 242 (150-450) K/mm3 MPV 8.8 (6-9.5) fl Gran % 55.3 (36.0-66.0) % Lymphocytes % 32.2 (24.0-44.0) % Monocytes % 8.6 (0.0-12.0) % Eosinophils % 3.7 (0.00-5.0) % Basophils % 0.2 (0.0-0.4) % Basophils # 0.01 (0-0.4) Sodium (136-145) mEq/L Potassium (3.5-5.1) mEq/L Chloride (98-107) mEq/L Carbon Dioxide (21-32) mEq/L Anion Gap (5-15) MEQ/L BUN (9-20) mg/dL Creatinine (0.55-1.30) mg/dl Estimated GFR ML/MIN Glucose (70-110) MG/DL Calcium (8.5-10.1) mg/dL Total Bilirubin (0.2-1.0) mg/dL AST (15-37) U/L ALT (12-78) U/L Alkaline Phosphatase (46-116) U/L Serum Total Protein (6.4-8.2) gm/dL Albumin (3.4-5.0) g/dL Ur Collection Type Urine Color (YELLOW) Urine Appearance (CLEAR) Urine pH (5-6) Ur Specific [place] (1.005-1.025) Urine Protein (Negative) Urine Ketones (NEGATIVE) Urine Blood (0-5) Wayne/ul Urine Nitrite (NEGATIVE) Urine Bilirubin (NEGATIVE) Urine Urobilinogen (0-1) mg/dL Ur Leukocyte Esterase (NEGATIVE) Urine Culture Reflexed (NO) Urine Glucose (NEGATIVE) mg/dL Urine Opiates Level (NEGATIVE) Ur Methadone (NEGATIVE) Urine Barbiturates (NEGATIVE) Ur Phencyclidine (PCP) (NEGATIVE) Urine Amphetamine (NEGATIVE) U Benzodiazepine Level (NEGATIVE) Urine Cocaine (NEGATIVE) Urine Marijuana (THC) (NEGATIVE) Specimen Received - Progress Progress: improved Counseled pt/family regarding: lab results, diagnosis, need for follow-up - Departure Time of Disposition: 18:59 Departure Disposition: Home Clinical Impression: Seizure Condition: Stable Critical Care Time: No Referrals: HUNTER PATRICIO MD [Primary Care Provider] - Additional Instructions: You likely had a seizure today at home. You were given fluids and Ativan by IV in the ER. Follow up tomorrow with her primary care provider.
[2018-01-07 17:58] VITALS: BP 121/74; PULSE 97; O2SAT 98
[2018-01-07] MEDS ORDERED: Sodium Chloride 0.9% 1000 ML 1,000 ML ONE (18:01)
[2018-01-07] MEDS ORDERED: Ativan 2 MG/1 ML VIAL IV ONE (18:03)
[2018-01-07] MEDS ORDERED: Ativan 2 MG/1 ML VIAL ONE (18:07)
[2018-01-07 18:27] LABS: BASOPHIL % 0.2 % (0.0-0.4); Basophil (Absolute #) 0.01 (0-0.4); Eosinophil % 3.7 % (0.00-5.0); Eosinophil (Absolute #) 0.19 (0-0.5); Granulocyte Absolute (ANC) 2.84 (1.4-6.9); Granulocytes % 55.3 % (36.0-66.0); Hematocrit 36.6 % (35-47); Hemoglobin 11.7 gm/dl (12.0-16.0); Lymphocyte (Absolute #) 1.65 (1.0-4.6); Lymphocytes % 32.2 % (24.0-44.0); Mean Cell Volume 97.9 fl (78-100); Mean Platelet Volume 8.8 fl (6-9.5); Monocyte (Absolute #) 0.44 (0.0-1.3); Monocytes % 8.6 % (0.0-12.0); Platelet Count 242 K/mm3 (150-450); Red Blood Count 3.74 M/mm3 (4.1-5.4); Red Cell Distribution Width 11.7 % (11.5-14.0); White Blood Count 5.1 K/mm3 (4.0-10.5)
[2018-01-07 18:29] LABS: Mean Corpuscular Hemoglobin 31.2 pg (26-32)
[2018-01-07 18:40] LABS: Appearance CLEAR (CLEAR); Glucose NEGATIVE (NEGATIVE); Leukocyte Esterase NEGATIVE (NEGATIVE); Nitrite NEGATIVE (NEGATIVE); Protein,Urine Dip NEGATIVE (Negative); Specific Gravity 1.015 (1.005-1.025)
[2018-01-07 18:41] LABS: Bilirubin NEGATIVE (NEGATIVE); Blood NEGATIVE Ery/ul (0-5); Ketones NEGATIVE (NEGATIVE); Urobilinogen NORMAL mg/dL (0-1)
[2018-01-07 18:47] LABS: ALBUMIN 3.8 g/dL (3.4-5.0); ALKALINE PHOSPHATASE 67 U/L (46-116); ANION GAP 10.6 MEQ/L (5-15); BLOOD UREA NITROGEN 15 mg/dL (9-20); CHLORIDE 106 mEq/L (98-107); Calcium 8.6 mg/dL (8.5-10.1); Carbon Dioxide 29.5 mEq/L (21-32); Creatinine 1 0.88 mg/dl (0.55-1.30); EST GLOMERULAR FILTRATION RATE > 60 ML/MIN; Glucose 90 MG/DL (70-110); Potassium 3.7 mEq/L (3.5-5.1); SGOT/AST 14 U/L (15-37); SGPT/ALT 18 U/L (12-78); SODIUM 142 mEq/L (136-145); Total Protein 6.8 gm/dL (6.4-8.2)
[2018-01-07 18:50] LABS: Amphetamine,Urine NEG. (NEGATIVE); Barbiturate,Urine NEG. (NEGATIVE); Benzodiazepine,Urine NEG. (NEGATIVE); Cocaine,Urine NEG. (NEGATIVE); Methadone,Urine NEG. (NEGATIVE); Opiate,Urine NEG. (NEGATIVE); PCP,Urine NEG. (NEGATIVE); THC,Urine NEG. (NEGATIVE)
== END 2018-01-07 19:15 ==
LOC: ED 17:45
DX: R56.9 Unspecified convulsions (principal)
CPT/HCPCS: 36000; 36415; 80053; 80307; 81002; 85025; 96360; 96374; 96375; 99284; J2060

== ENCOUNTER 2019-12-23 14:00 | Emergency (ER) | payer OTHER ==
[2019-12-23] MEDS ORDERED: Robitussin AC Syrup Unit Dose Cup PO ONE (14:42)
[2019-12-23] MEDS ORDERED: Robitussin AC Syrup Unit Dose Cup ONE (14:50)
--- NOTE | 2019-12-23 15:04 | ERPHSYRPT ---
- History of Present Illness Time Seen by Provider: 12/23/19 14:28 Source: patient, family Exam Limitations: no limitations Patient Subjective Stated Complaint: pt here with mother for cough, fever, headache, for a couple days, Triage Nursing Assessment: pt alert, walked in, she is mently disabled, resp easy, dry cough, Physician History: 29 years old female presents to the ER with for 5 days history URI symptoms with cough congestion and intermittent fever with a MAXIMUM TEMPERATURE of 103. Mom has been using Tylenol/ibuprofen to help with fever.she's having dry hacking cough which is worsening since yesterday. No shortness of breath or wheezing. Did not have a flu shot this season. Other family members have similar symptoms. Timing/Duration: day(s) (4), gradual onset, worse Cough Quality/Degree: moderate, dry cough Possible Cause: no prior episodes Associated Symptoms: fever, chills Allergies/Adverse Reactions: No Known Drug Allergies Allergy (Verified 01/07/18 17:53) Home Medications: Lamotrigine 100 mg [lamICTAL 100MG TABLET] 200 mg PO BID 12/19/13 [History ] Loratadine 10 mg [Claritin 10 mg] 10 mg DAILY 12/23/19 [History] Mirtazapine 15 mg DAILY 12/23/19 [History] Hx Tetanus, Diphtheria Vaccination/Date Given: Yes Hx Influenza Vaccination/Date Given: No Hx Pneumococcal Vaccination/Date Given: No Immunizations Up to Date: Yes - Review of Systems Constitutional: Fever, Chills Eyes: No Symptoms Ears, Nose, & Throat: Nose Congestion, Throat Pain, Throat Swelling Respiratory: Cough Cardiac: No Symptoms Abdominal/Gastrointestinal: No Symptoms Genitourinary Symptoms: No Symptoms Musculoskeletal: No Symptoms Skin: No Symptoms Neurological: No Symptoms Endocrine: No Symptoms Hematologic/Lymphatic: No Symptoms Immunological/Allergic: No Symptoms - Past Medical History Pertinent Past Medical History: Yes Neurological History: Seizures, Other ENT History: No Pertinent History Cardiac History: Hypertension Respiratory History: No Pertinent History Endocrine Medical History: Other Musculoskeletal History: No Pertinent History GI Medical History: GERD History: Other Psycho-Social History: Anxiety, Attention Deficit Disorder, Bipolar, Depression Female Reproductive Disorders: No Pertinent History Other Medical History: developmentally delayed. anger issues,Mother states "bipolar and pre diabetic" - Past Surgical History Past Surgical History: Yes Neuro Surgical History: No Pertinent History Cardiac: No Pertinent History Respiratory: No Pertinent History Gastrointestinal: Cholecystectomy Genitourinary: No Pertinent History Musculoskeletal: No Pertinent History Female Surgical History: No Pertinent History - Social History Smoking Status: Never smoker Exposure to second hand smoke: Yes Drug Use: none Patient Lives Alone: No (mother) - Female History Hx Last Menstrual Period: nov 2019 Hx Now: No - Nursing Vital Signs Nursing Vital Signs: Initial Vital Signs Temperature 99.1 F 12/23/19 14:13 Pulse Rate 78 12/23/19 14:13 Respiratory Rate 18 12/23/19 14:13 Blood Pressure 104/64 12/23/19 14:13 O2 Sat by Pulse Oximetry 95 12/23/19 14:13 Pain Scale Pain Intensity 8 - Physical Exam General Appearance: no apparent distress Eye Exam: PERRL/EOMI, eyes nml inspection Ears, Nose, Throat Exam: TMs normal, pharyngeal erythema Neck Exam: normal inspection, non-tender, supple, full range of motion Respiratory Exam: normal breath sounds, lungs clear, No respiratory distress, No diminished breath sounds, No accessory muscle use, No crackles/rales, No wheezing Cardiovascular Exam: regular rate/rhythm, normal heart sounds Gastrointestinal/Abdomen Exam: soft, normal bowel sounds Back Exam: normal inspection Extremity Exam: normal inspection Neurologic Exam: alert, oriented x 3, cooperative Skin Exam: normal color SpO2 Interpretation: normal SpO2: 98 O2 Delivery: Room Air - Course Nursing assessment & vital signs reviewed: Yes Ordered Tests: Active Orders 24 hr Category Date Time Status CHEST 2 VIEWS (PA AND LAT) Stat Exams 12/23/19 15:06 Completed Medication Summary Discontinued Medications Generic Name Dose Route Start Last Admin Trade Name Freq PRN Reason Stop Dose Admin Guaifenesin/Codeine Phosphate 10 ml 12/23/19 14:42 12/23/19 14:50 Robitussin Ac Syrup Unit Dose Cup PO 12/23/19 14:43 10 ml 1-2XD ONE Administration Guaifenesin/Codeine Phosphate Confirm 12/23/19 14:50 Robitussin Ac Syrup Unit Dose Cup Administered 12/23/19 14:51 Dose 10 ml .ROUTE .STK-MED ONE Lab/Rad Data: Laboratory Results 12/23/19 Range/Units 14:50 Influenza Type A Ag NEGATIVE (NEGATIVE) Influenza Type B Ag NEGATIVE (NEGATIVE) RSV (PCR) NEGATIVE (Negative) Group A Strep Antibody NEGATIVE (NEGATIVE) - Progress Progress: improved, re-examined Air Movement: good Progress Note: 29 years old is evaluated for worsening cough and fever. She does not have fever while in the ER. Mom reports she gave antipyretics before arrival. Chest x-ray clear of any infiltrates. Negative strep and flu. Patient is given cough medication here and is feeling better. Patient has been coughing badly and I believe initially she has a viral URI and now is having some bacterial colonization causing bronchitis.I would give her Z-Silvano along with recommendations for using Robitussin, Tylenol/ibuprofen as needed. Do not think she needs any further workup and is stable for discharge with outpatient followup. 12/23/19 16:01 Blood Culture(s) Obtained: No Antibiotics given: Yes Counseled pt/family regarding: lab results, diagnosis, need for follow-up, rad results - Departure Departure Disposition: Home Clinical Impression: Acute bronchitis Qualifiers: Bronchitis organism: unspecified organism Qualified Code(s): J20.9 - Acute bronchitis, unspecified Condition: Stable Critical Care Time: No Referrals: HUNTER PATRICIO MD [Primary Care Provider] - Follow Up with PCP/3 days Instructions: Cough, Adult (DC) Additional Instructions: use Robitussin, Tylenol/ibuprofen as needed. Followup with primary care for reevaluation. Return to the ER for any worsening.
--- NOTE | 2019-12-23 15:19 | XRAY ---
Indication: Cough and wheezing. Pneumonia. Comparison: September 08, 2014. PA/lateral chest demonstrates new patchy left apical airspace opacity. Remaining heart, lungs, and bony thorax normal.
[2019-12-23 15:53] LABS: INFLUENZA A NEGATIVE (NEGATIVE); INFLUENZA B NEGATIVE (NEGATIVE); RESPIRATORY SYNCTIAL VIRUS NEGATIVE (Negative)
[2019-12-23 16:31] VITALS: BP 109/63; PULSE 88; O2SAT 99
== END 2019-12-23 16:31 | disposition home or self-care (01) ==
LOC: ED 14:00
DX: J20.9 Acute bronchitis, unspecified (principal)
CPT/HCPCS: 71046; 87631; 87651; 99284; A9270-GY

== ENCOUNTER 2022-11-01 18:22 | Emergency (ER) | payer OTHER ==
[2022-11-01] MEDS ORDERED: Sodium Chloride 0.9% 1000 ML 1,000 ML IV STA (19:19)
[2022-11-01] MEDS ORDERED: PROTONIX 40 MG IV IV ONE ×2 (19:19→19:27)
[2022-11-01] MEDS ORDERED: Zofran 4 MG/2 ML VIAL IV ONE (19:19)
--- NOTE | 2022-11-01 19:26 | ERPHSYRPT ---
- History of Present Illness Historian: patient Exam Limitations: other (Poor historian) Patient Subjective Stated Complaint: pt has reduced mental status, she is accompanied by her sister, pt reports abdominal pain starting yesterday as well as some vomiting and nausea, pt sister reports she has been exposed to influenza A by a family member. Triage Nursing Assessment: pt is alert and behavior is apropriate per baseline, afebrile, resps easy and non labored, pupils perrl, resps easy and non labored, cap refill < 3 seconds, abd soft non tender bowel sounds present normoactive x 4. pt skin pale warm dry, pt noted to be shivering during exam. Physician History: 32 yo WF who's father is in the ER for probable influenzaA presents w N/V/epi gastric pain x 1 day. Pain is stabbing and 10 on scale. Nothing makes it better or worse, andf it does not radiate. She denies cough/coryza/hematemesis/melena/hematochezia/dysuria/hematuria/CUBA/ST. Timing/Duration: yesterday Activities at Onset: rest Quality: stabbing Abdominal Pain Onset Location: epigastric Pain Radiation: no radiation Severity of Pain-Max: severe Severity of Pain-Current: severe Modifying Factors: Improves With: nothing Associated Symptoms: denies symptoms, nausea, vomiting Previous symptoms: no prior history Allergies/Adverse Reactions: Latex, Natural Rubber Allergy (Unknown, Verified 11/01/22 19:10) unknown Hx Tetanus, Diphtheria Vaccination/Date Given: Yes Hx Influenza Vaccination/Date Given: No Hx Pneumococcal Vaccination/Date Given: No Immunizations Up to Date: Yes Travel Risk - International Travel Have you traveled outside of the country in past 3 weeks: No - Coronavirus Screening Are you exhibiting any of the following symptoms?: No - Vaccine Status Have you recieved a Covid-19 vaccination: No - Review of Systems Constitutional: No Symptoms Eyes: No Symptoms Ears, Nose, & Throat: No Symptoms Respiratory: No Symptoms Cardiac: No Symptoms Abdominal/Gastrointestinal: No Symptoms, Abdominal Pain, Nausea, Vomiting Genitourinary Symptoms: No Symptoms Musculoskeletal: No Symptoms Skin: No Symptoms Neurological: No Symptoms Psychological: No Symptoms Endocrine: No Symptoms Hematologic/Lymphatic: No Symptoms Immunological/Allergic: No Symptoms - Past Medical History Pertinent Past Medical History: Yes Neurological History: Seizures, Other ENT History: No Pertinent History Cardiac History: Hypertension Respiratory History: No Pertinent History Endocrine Medical History: Other Musculoskeletal History: No Pertinent History GI Medical History: GERD History: Other Psycho-Social History: Anxiety, Attention Deficit Disorder, Bipolar, Depression Female Reproductive Disorders: No Pertinent History Other Medical History: developmentally delayed. anger issues,Mother states "bipolar and pre diabetic" - Past Surgical History Past Surgical History: Yes Neuro Surgical History: No Pertinent History Cardiac: No Pertinent History Respiratory: No Pertinent History Gastrointestinal: Appendectomy, Cholecystectomy Genitourinary: No Pertinent History Musculoskeletal: No Pertinent History Female Surgical History: No Pertinent History - Social History Smoking Status: Never smoker Exposure to second hand smoke: Yes Drug Use: none Patient Lives Alone: No - Female History Hx Now: No - Nursing Vital Signs Nursing Vital Signs: Initial Vital Signs Temperature 98.3 F 11/01/22 18:58 Pulse Rate 136 H 11/01/22 18:58 Respiratory Rate 20 11/01/22 18:58 Blood Pressure 143/68 11/01/22 18:58 O2 Sat by Pulse Oximetry 99 11/01/22 18:58 Pain Scale Pain Intensity 10 Tachy - Physical Exam General Appearance: no apparent distress Eye Exam: PERRL/EOMI, eyes nml inspection Ears, Nose, Throat Exam: normal ENT inspection, TMs normal, pharynx normal, moist mucous membranes Neck Exam: normal inspection, non-tender, supple, full range of motion, No meningismus, No mass, No Brudzinski, No Kernig's Respiratory Exam: normal breath sounds, lungs clear, airway intact Cardiovascular Exam: tachycardia, capillary refill <2 sec, No murmur Gastrointestinal/Abdomen Exam: soft, normal bowel sounds, tenderness (Mild epigastric TTP wo guarding or rebound) Back Exam: normal inspection, normal range of motion Extremity Exam: normal inspection, normal range of motion Neurologic Exam: alert, oriented x 3, cooperative, chemical research engineer II-XII nml as tested, normal mood/affect, nml cerebellar function, nml station & gait, sensation nml Skin Exam: normal color, warm, dry, No rash Lymphatic Exam: No adenopathy SpO2 Interpretation: normal SpO2: 99 O2 Delivery: Room Air - Course Nursing assessment & vital signs reviewed: Yes Ordered Tests: Active Orders 24 hr Category Date Time Status AMYLASE Stat Lab 11/01/22 19:10 Completed CBC W DIFF Stat Lab 11/01/22 19:10 Completed CMP Stat Lab 11/01/22 19:10 Completed HCG QUALITATIVE,SERUM Stat Lab 11/01/22 19:10 Completed LIPASE Stat Lab 11/01/22 19:10 Completed UA W/RFX CULTURE Stat Lab 11/01/22 19:44 Ordered Medication Summary Discontinued Medications Generic Name Dose Route Start Last Admin Trade Name Siva PRN Reason Stop Dose Admin Sodium Chloride 1,000 mls @ 999 mls/hr 11/01/22 19:19 11/01/22 19:29 Sodium Chloride 0.9% 1000 Ml IV 11/01/22 20:19 999 mls/hr .Q1H1M STA Administration Sodium Chloride Confirm 11/01/22 19:27 Sodium Chloride 0.9% 1000 Ml Administered 11/01/22 19:28 Dose 1,000 mls @ ud .ROUTE .STK-MED ONE Ondansetron HCl 4 mg 11/01/22 19:19 11/01/22 19:31 Ondansetron Hcl 4 Mg/2 Ml Vial IV 11/01/22 19:20 4 mg STAT ONE Administration Ondansetron HCl Confirm 11/01/22 19:27 Ondansetron Hcl 4 Mg/2 Ml Vial Administered 11/01/22 19:28 Dose 4 mg .ROUTE .STK-MED ONE Pantoprazole Sodium 40 mg 11/01/22 19:19 11/01/22 19:31 Pantoprazole 40 Mg Vial IV 11/01/22 19:20 40 mg STAT ONE Administration Pantoprazole Sodium Confirm 11/01/22 19:27 Pantoprazole 40 Mg Vial Administered 11/01/22 19:28 Dose 40 mg IV .STK-MED ONE Lab/Rad Data: Laboratory Result Diagrams 11/01/22 19:10 11/01/22 19:10 Laboratory Results 11/01/22 11/01/22 11/01/22 Range/Units 19:10 19:10 19:10 WBC 6.2 (4.0-10.5) x10^3/uL RBC 3.89 L (4.1-5.4) x10^6/uL Hgb 12.3 (12.0-16.0) g/dL Hct 38.6 (35-47) % MCV 99.2 (78-100) fL MCH 31.6 (26-32) pg MCHC 31.9 L (32-36) g/dL RDW 11.9 (11.5-14.0) % Plt Count 263 (150-450) x10^3/uL MPV 8.8 (7.5-11.0) fL Gran % 80.7 H (36.0-66.0) % Immature Gran % (Auto) 0.3 (0.00-0.4) % Nucleat RBC Rel Count 0.0 (0.00-0.1) % Eos # (Auto) 0.03 (0-0.5) x10^3/uL Immature Gran # (Auto) 0.02 (0.00-0.03) x10^3u/L Absolute Lymphs (auto) 0.40 L (1.0-4.6) x10^3/uL Absolute Monos (auto) 0.73 (0.0-1.3) x10^3/uL Absolute Nucleated RBC 0.00 (0.00-0.01) x10^3u/L Lymphocytes % 6.4 L (24.0-44.0) % Monocytes % 11.8 (0.0-12.0) % Eosinophils % 0.5 (0.00-5.0) % Basophils % 0.3 (0.0-0.4) % Absolute Granulocytes 5.01 (1.4-6.9) x10^3/uL Basophils # 0.02 (0-0.4) x10^3/uL Sodium 137 (137-145) mmol/L Potassium 3.9 (3.5-5.1) mmol/L Chloride 102 (98-107) mmol/L Carbon Dioxide 24 (22-30) mmol/L Anion Gap 15.0 (5-15) MEQ/L BUN 12 (7-17) mg/dL Creatinine 0.86 (0.52-1.04) mg/dL Estimated GFR > 60.0 ML/MIN Glucose 100 (74-106) mg/dL Calcium 8.7 (8.4-10.2) mg/dL Total Bilirubin 0.50 (0.2-1.3) mg/dL AST 39 H (14-36) U/L ALT 27 (0-35) U/L Alkaline Phosphatase 118 (38-126) U/L Serum Total Protein 7.9 (6.3-8.2) g/dL Albumin 4.5 (3.5-5.0) g/dL Amylase 70 (30-110) U/L Lipase 79 (23-300) U/L Serum , Qual NEGATIVE (Negative) Influenza Type A Ag (NEGATIVE) Influenza Type B Ag (NEGATIVE) RSV (PCR) (Negative) SARS-CoV-2 (PCR) (NEGATIVE) 11/01/22 Range/Units 19:10 WBC (4.0-10.5) x10^3/uL RBC (4.1-5.4) x10^6/uL Hgb (12.0-16.0) g/dL Hct (35-47) % MCV (78-100) fL MCH (26-32) pg MCHC (32-36) g/dL RDW (11.5-14.0) % Plt Count (150-450) x10^3/uL MPV (7.5-11.0) fL Gran % (36.0-66.0) % Immature Gran % (Auto) (0.00-0.4) % Nucleat RBC Rel Count (0.00-0.1) % Eos # (Auto) (0-0.5) x10^3/uL Immature Gran # (Auto) (0.00-0.03) x10^3u/L Absolute Lymphs (auto) (1.0-4.6) x10^3/uL Absolute Monos (auto) (0.0-1.3) x10^3/uL Absolute Nucleated RBC (0.00-0.01) x10^3u/L Lymphocytes % (24.0-44.0) % Monocytes % (0.0-12.0) % Eosinophils % (0.00-5.0) % Basophils % (0.0-0.4) % Absolute Granulocytes (1.4-6.9) x10^3/uL Basophils # (0-0.4) x10^3/uL Sodium (137-145) mmol/L Potassium (3.5-5.1) mmol/L Chloride (98-107) mmol/L Carbon Dioxide (22-30) mmol/L Anion Gap (5-15) MEQ/L BUN (7-17) mg/dL Creatinine (0.52-1.04) mg/dL Estimated GFR ML/MIN Glucose (74-106) mg/dL Calcium (8.4-10.2) mg/dL Total Bilirubin (0.2-1.3) mg/dL AST (14-36) U/L ALT (0-35) U/L Alkaline Phosphatase (38-126) U/L Serum Total Protein (6.3-8.2) g/dL Albumin (3.5-5.0) g/dL Amylase (30-110) U/L Lipase (23-300) U/L Serum , Qual (Negative) Influenza Type A Ag POSITIVE (NEGATIVE) Influenza Type B Ag NEGATIVE (NEGATIVE) RSV (PCR) NEGATIVE (Negative) SARS-CoV-2 (PCR) NEGATIVE (NEGATIVE) - Progress Progress: improved Progress Note: 11/01/22 20:35 1L NS bolus/4mg IV Zofran/40mg IV Protonix w improvement Counseled pt/family regarding: lab results, diagnosis, need for follow-up - Departure Departure Disposition: Home Clinical Impression: Influenza A Condition: Stable Critical Care Time: No Referrals: HUNTER PATRICIO MD [Primary Care Provider] - Follow up/PCP as directed Instructions: Flu, Adult (DC) Additional Instructions: Rest/Fluids/Motrin/Tylenol Tamiflu twice a day for 5 days Zofran for nausea/vomiting Return to ER as needed Prescriptions: Ondansetron ODT 4 MG [Zofran Odt 4 mg] 4 mg PO Q6H PRN PRN #10 tablet PRN Reason: Nausea Oseltamivir 75 mg [Tamiflu 75MG Capsule] 75 mg PO BID #10 cap
[2022-11-01] MEDS ORDERED: Zofran 4 MG/2 ML VIAL ONE (19:27)
[2022-11-01] MEDS ORDERED: Sodium Chloride 0.9% 1000 ML 1,000 ML ONE (19:27)
[2022-11-01 19:29] LABS: Absolute Neutrophil Ct (ANC) 5.01 x10^3/uL (1.4-6.9); Basophil (Absolute #) 0.02 x10^3/uL (0-0.4); Eosinophil % 0.5 % (0.00-5.0); Eosinophil (Absolute #) 0.03 x10^3/uL (0-0.5); Hematocrit 38.6 % (35-47); Hemoglobin 12.3 g/dL (12.0-16.0); Lymphocytes % 6.4 % (24.0-44.0); Mean Cell Volume 99.2 fL (78-100); Mean Corpuscular Hemoglobin 31.6 pg (26-32); Mean Corpuscular Hgb Concent. 31.9 g/dL (32-36); Mean Platelet Volume 8.8 fL (7.5-11.0); Monocyte (Absolute #) 0.73 x10^3/uL (0.0-1.3); Monocytes % 11.8 % (0.0-12.0); Neutrophil % 80.7 % (36.0-66.0); Platelet Count 263 x10^3/uL (150-450); Red Blood Count 3.89 x10^6/uL (4.1-5.4); Red Cell Distribution Width 11.9 % (11.5-14.0); White Blood Count 6.2 x10^3/uL (4.0-10.5)
[2022-11-01 19:54] LABS: ALBUMIN 4.5 g/dL (3.5-5.0); ALKALINE PHOSPHATASE 118 U/L (38-126); AMYLASE 70 U/L (30-110); BLOOD UREA NITROGEN 12 mg/dL (7-17); CHLORIDE 102 mmol/L (98-107); Calcium 8.7 mg/dL (8.4-10.2); Carbon Dioxide 24 mmol/L (22-30); Creatinine 1 0.86 mg/dL (0.52-1.04); EST GLOMERULAR FILTRATION RATE > 60.0 ML/MIN; Glucose 100 mg/dL (74-106); LIPASE 79 U/L (23-300); Potassium 3.9 mmol/L (3.5-5.1); SGOT/AST 39 U/L (14-36); SGPT/ALT 27 U/L (0-35); SODIUM 137 mmol/L (137-145); Total Protein 7.9 g/dL (6.3-8.2)
[2022-11-01 20:16] LABS: INFLUENZA B NEGATIVE (NEGATIVE); RESPIRATORY SYNCTIAL VIRUS NEGATIVE (Negative); SARS-CoV-2 Xpert Express NEGATIVE (NEGATIVE)
[2022-11-01 20:33] LABS: INFLUENZA A POSITIVE (NEGATIVE)
[2022-11-01 21:03] LABS: Epithelial Cells RARE /HPF (FEW); Mucus SLIGHT /HPF (NEGATIVE)
[2022-11-01 21:04] LABS: Appearance CLEAR (CLEAR); Bilirubin SMALL (NEGATIVE); Dipstick done @ ? MAIN LAB; Glucose NEGATIVE (NEGATIVE); Ketones LARGE-80 (NEGATIVE); Nitrite NEGATIVE (NEGATIVE); Protein,Urine Dip NEGATIVE (Negative); RBC MODERATE Ery/ul (0-5); Specific Gravity 1.025 (1.005-1.025); Urine Cultured Indicated? NO; Urobilinogen 0.2 mg/dL (0-1)
[2022-11-01 21:11] VITALS: BP 122/87; PULSE 78; O2SAT 98
== END 2022-11-01 21:11 | disposition home or self-care (01) ==
LOC: ED 18:22
DX: J10.2 Influenza due to other identified influenza virus with gastrointestinal manifestations (principal); R11.2 Nausea with vomiting, unspecified; R10.13 Epigastric pain; I10 Essential (primary) hypertension; Z28.310 Unvaccinated for COVID-19
CPT/HCPCS: 0241U; 36415; 80053; 81015; 82150; 83690; 84703; 85025; 96374; 99284; 96360; 96375; J2405

== ENCOUNTER 2024-07-13 16:40 | Emergency (ER) | payer OTHER ==
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
[2024-07-13 17:26] LABS: HCG URINE TEST NEGATIVE (NEGATIVE)
[2024-07-13 17:29] LABS: BASOPHIL % 0.4 % (0.1-1.2); Basophil (Absolute #) 0.03 x10^3/uL (0.01-0.08); Eosinophil % 1.3 % (0.7-5.8); Eosinophil (Absolute #) 0.09 x10^3/uL (0.04-0.36); Hematocrit 36.9 % (34.1-44.9); Hemoglobin 11.6 g/dL (11.2-15.7); IMMATURE GRAN # 0.01 x10^3u/L (0.001-0.031); IMMATURE GRAN % 0.1 % (0.001-0.429); Lymphocyte (Absolute #) 1.38 x10^3/uL (1.18-3.74); Lymphocytes % 20.2 % (19.3-51.7); Mean Cell Volume 99.5 fL (79.4-94.8); Mean Corpuscular Hemoglobin 31.3 pg (25.6-32.2); Mean Corpuscular Hgb Concent. 31.4 g/dL (32.2-35.5); Mean Platelet Volume 8.8 fL (9.4-12.3); Monocyte (Absolute #) 0.51 x10^3/uL (0.24-0.86); Monocytes % 7.5 % (4.7-12.5); Neutrophil % 70.5 % (34.0-71.1); Platelet Count 260 x10^3/uL (182-369); Red Blood Count 3.71 x10^6/uL (3.93-5.22); Red Cell Distribution Width 12.6 % (11.7-14.4); White Blood Count 6.8 x10^3/uL (3.98-10.04)
[2024-07-13 17:41] LABS: ADD URINE CULTURE? YES (NO); Amphetamine,Urine NEGATIVE (NEGATIVE); Appearance Clear (Clear); Bacteria None Seen /HPF (None Seen); Barbiturate,Urine NEGATIVE (NEGATIVE); Benzodiazepine,Urine NEGATIVE (NEGATIVE); Bilirubin Negative (Negative); Blood Large (Negative); Cocaine,Urine NEGATIVE (NEGATIVE); Epithelial Cells None Seen /HPF (None Seen); Glucose, Urine Negative (Negative); Hyaline Casts NONE SEEN /LPF (0-2); Ketones Negative (Negative); Leukocyte Esterase Moderate (Negative); Methadone,Urine NEGATIVE (NEGATIVE); Nitrite Negative (Negative); Opiate,Urine NEGATIVE (NEGATIVE); PCP,Urine NEGATIVE (NEGATIVE); Protein,Urine Dip Negative (Negative); RBC NONE SEEN /HPF (0-5); Specific Gravity <=1.005 (1.005-1.030); THC,Urine NEGATIVE (NEGATIVE); Urobilinogen 0.2 mg/dL (0.2)
[2024-07-13 17:44] LABS: ACETAMINOPHEN < 10 ug/ml (10-30); ALBUMIN 4.4 g/dL (3.5-5.0); ALKALINE PHOSPHATASE 83 U/L (38-126); ANION GAP 12.5 MEQ/L (5-15); BLOOD UREA NITROGEN 12 mg/dL (7-17); CHLORIDE 103 mmol/L (98-107); Calcium 9.1 mg/dL (8.4-10.2); Carbon Dioxide 27 mmol/L (22-30); Creatinine 1 0.88 mg/dL (0.52-1.04); EST GLOMERULAR FILTRATION RATE 89.5 ML/MIN; ETHYL ALCOHOL < 10 mg/dL (0-10); Glucose 100 mg/dL (74-106); Potassium 4.1 mmol/L (3.5-5.1); SALICYLATE < 1.0 mg/dL (2-20); SGOT/AST 29 U/L (14-36); SGPT/ALT 20 U/L (0-35); SODIUM 139 mmol/L (135-145); Total Protein 7.5 g/dL (6.3-8.2)
[2024-07-13 18:12] VITALS: TEMP 97
[2024-07-13 21:50] VITALS: RESP 17
[2024-07-13 23:05] VITALS: BP 126/74; PULSE 72; O2SAT 96
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
== END 2024-07-13 23:34 ==
LOC: EEVIPCON 16:40 → ED 16:40
DX: Z02.2 Encounter for examination for admission to residential institution (principal); R45.851 Suicidal ideations; S50.812A Abrasion of left forearm, initial encounter; X78.8XXA Intentional self-harm by other sharp object, initial encounter; S00.03XA Contusion of scalp, initial encounter; Y04.2XXA Assault by strike against or bumped into by another person, initial encounter; Z63.9 Problem related to primary support group, unspecified; I10 Essential (primary) hypertension
CPT/HCPCS: 36415; 70450; 80053; 80143; 80179; 80307; 81001; 81025; 82077; 85025; 87077; 87086; 87186; 99285